=== PATIENT | male | born 2000 | race Caucasian/White ===

== ENCOUNTER 2019-01-11 20:34 | Emergency (ER) | payer MEDICAID, SELFPAY ==
--- NOTE | 2019-01-11 21:19 | RAD ---
3 views right ankle: 01/11/2019 COMPARISON: None HISTORY: Injury, trauma, pain FINDINGS: Obliquely oriented fracture involving the distal right fibula, extending into the region of the distal right tibiofibular interspace. The talar dome and ankle mortise appear intact. There is associated lateral and anterior soft tissue swelling. No dislocation. IMPRESSION: Distal right fibular fracture.
== END 2019-01-11 22:59 | disposition home or self-care (01) ==
LOC: ERS 20:34
DX: S82.831A Other fracture of upper and lower end of right fibula, initial encounter for closed fracture (principal); W20.8XXA Other cause of strike by thrown, projected or falling object, initial encounter
CPT/HCPCS: 29515